=== PATIENT | female | born 1955 | race Caucasian/White ===

== ENCOUNTER 2023-04-25 19:14 | Inpatient (IN) | payer MEDICARE ==
[~2023-04-25] VITALS: Ht 172.7 cm; Wt 97.5 kg
--- NOTE | 2023-04-25 19:30 | NUR ---
Admission report received from AM nurse.
--- NOTE | 2023-04-25 19:55 | NUR ---
Patient awake, alert 2-3, able to make needs known. Sister at bedside. Left sided weakness noted. AUDI midline intact and patent. Supra pubic cath intact and patent draining clear yellow urine output. Routine admission care done. Plan of care initiated. VS taken and recorded.
[2023-04-25] MEDS ORDERED: ACET-3117 PO (20:08)
[2023-04-25] MEDS ORDERED: BACL10TA PO (20:08)
[2023-04-25] MEDS ORDERED: MELO-105 PO (20:08)
[2023-04-25] MEDS ORDERED: PREG50CA PO (20:08)
[2023-04-25] MEDS ORDERED: ATOR40TA PO (20:08)
[2023-04-25] MEDS ORDERED: MERO500P IV (20:08)
[2023-04-25] MEDS ORDERED: LITH300T3 PO (20:08)
[2023-04-25] MEDS ORDERED: TRAZ150T75 PO (20:08)
[2023-04-25] MEDS ORDERED: LIDO30AD10 TD (20:08)
[2023-04-25] MEDS ORDERED: BUSP30TA2 PO (20:08)
[2023-04-25] MEDS ORDERED: LAMO200T10 PO (20:08)
[2023-04-25] MEDS ORDERED: OXYC-128 PO (20:08)
[2023-04-25] MEDS ORDERED: PANT40TA49 PO (20:08)
[2023-04-25] MEDS ORDERED: AZIT250T13 PO (20:08)
[2023-04-25] MEDS ORDERED: ENOX40DI SQ (20:08)
[2023-04-25] MEDS ORDERED: BUPR450T3 PO (20:08)
[2023-04-25] MEDS ORDERED: ONDA-104 IVP (20:08)
[2023-04-25] MEDS ORDERED: ASPI-495 PO (20:08)
[2023-04-25] MEDS ORDERED: LORA0.5T48 GT (20:08)
[2023-04-25 20:38] VITALS: BP 150/55
[2023-04-25] MEDS: REMEDY ESSENTIAL ZINC PASTE 113 GM TOP SCH (21:05)
[2023-04-25] MEDS: IV NS 1000 ML 1,000 ML IV PRN (21:05)
[2023-04-25] MEDS ORDERED: LIDOCAINE 5% PATCH TD PRN (21:15)
[2023-04-25] MEDS ORDERED: BACLOFEN 10 MG TABLET PO SCH (21:15)
[2023-04-25] MEDS ORDERED: ACETAMINOPHEN 325 MG TABLET PO PRN (21:45)
[2023-04-25] MEDS: LORAZEPAM 0.5 MG TABLET GT SCH (21:53)
[2023-04-25] MEDS: LITHIUM CARBONATE 300 MG CAPSULE PO SCH (21:53)
[2023-04-26 04:05] VITALS: BP 157/60
[2023-04-26] MEDS: OXYCODONE/APAP 5-325 MG TABLET PO PRN ×3 (04:35→15:49)
--- NOTE | 2023-04-26 04:38 | NUR ---
Awakened, suddenly starts screaming, when asked what's going on, stated "where's my "?. Confused, disoriented, agitated, starts hitting staffs when approached, saying "you're hurting me". Patient has supra pubic catheter but still incontinent of urine. Diaper soak and wet with urine. Good skin/saul care rendered. Combative/resistive during the care. she kicked/punched with her right hand.
[2023-04-26 06:36] LABS: HEMATOCRIT 38.7 % (31.2-41.9); MEAN CORPUSCULAR VOLUME 92.6 fL (75.5-95.3); PLATELET COUNT (AUTO) 209 K/uL (179-408)
[2023-04-26 07:07] LABS: BILIRUBIN,TOTAL 0.3 mg/dL (0.2-1.0); MAGNESIUM 1.7 mg/dL (1.8-2.4); PHOSPHOROUS 3.7 mg/dL (2.5-4.9); POTASSIUM 3.4 mmol/L (3.5-5.1); TOTAL PROTEIN, SERUM 6.2 g/dL (6.4-8.2)
[2023-04-26 07:47] VITALS: BP 153/62
[2023-04-26 07:55] LABS: THYROID STIMULATING HORMONE 1.643 mIU/mL (0.358-3.740)
--- NOTE | 2023-04-26 08:10 | NUR ---
Awake intermittently,restless, oriented to name. O2 at 2L/NC. IVF infusing. Bed alarm on
[2023-04-26] MEDS ORDERED: AZITHROMYCIN 250 MG TABLET PO SCH ×2 (09:00)
--- NOTE | 2023-04-26 09:30 | NUR ---
Fully awake, alert, oriented x 4, able to verbalized needs appropriately, calm and compliant with care
[2023-04-26] MEDS: PREGABALIN 25 MG CAPSULE PO SCH ×2 (09:41→17:23)
[2023-04-26] MEDS: LAMOTRIGINE 100 MG TABLET PO SCH ×2 (09:41→20:25)
[2023-04-26] MEDS: MELOXICAM 7.5 MG TABLET PO SCH (09:42)
[2023-04-26] MEDS: buPROPion XL 150 MG TAB.SR.24H PO SCH (09:42)
[2023-04-26] MEDS: PANTOPRAZOLE SODIUM 40 MG TABLET.DR PO SCH (09:42)
[2023-04-26] MEDS: ASPIRIN EC 81 MG TABLET.DR PO SCH (09:42)
[2023-04-26] MEDS: LORAZEPAM 0.5 MG TABLET GT SCH ×4 (09:43→20:24)
[2023-04-26] MEDS: busPIRone 10 MG TABLET PO SCH ×2 (09:43→17:23)
[2023-04-26] MEDS: ENOXAPARIN SODIUM 40 MG/0.4 ML DISP.SYRIN SQ SCH (09:44)
[2023-04-26] MEDS: REMEDY ESSENTIAL ZINC PASTE 113 GM TOP SCH ×2 (09:47→20:25)
[2023-04-26] MEDS: BACLOFEN 10 MG TABLET PO SCH ×3 (09:48→17:23)
[2023-04-26] MEDS ORDERED: MEROPENEM 0.5 G in IV NORMAL SALINE 50 ML IV SCH (10:00)
[2023-04-26] MEDS: MEROPENEM 0.5 G in IV NORMAL SALINE 50 ML IV SCH ×2 (10:19→17:26)
[2023-04-26] MEDS: IV NS 1000 ML 1,000 ML IV PRN (10:19)
[2023-04-26] MEDS ORDERED: MAGNESIUM OXIDE 400 MG TABLET PO ONE (11:00)
[2023-04-26] MEDS ORDERED: POTASSIUM CHLORIDE 10 MEQ TAB.PRT.SR PO ONE (12:00)
--- NOTE | 2023-04-26 12:00 | NUR ---
Assisted out of bed with PT with FWW ambulating outside of the room
[2023-04-26 15:33] VITALS: BP 149/59
[2023-04-26] MEDS: ENSURE ENLIVE (VAN) 240 ML LIQUID PO SCH (17:24)
--- NOTE | 2023-04-26 17:34 | NUR ---
Awake, alert, oriented to name and time, able to verbalized needs appropriately. Assisted with meal.
[2023-04-26] MEDS: ATORVASTATIN 40 MG TABLET PO SCH (20:24)
[2023-04-26] MEDS: LITHIUM CARBONATE 300 MG CAPSULE PO SCH (20:24)
[2023-04-26] MEDS: TRAZODONE 100 MG TABLET PO SCH (20:25)
[2023-04-26 20:46] VITALS: BP 154/59
[2023-04-27] MEDS: IV NS 1000 ML 1,000 ML IV PRN (00:03)
[2023-04-27] MEDS: OXYCODONE/APAP 5-325 MG TABLET PO PRN ×3 (00:10→18:02)
[2023-04-27] MEDS: MEROPENEM 0.5 G in IV NORMAL SALINE 50 ML IV SCH ×2 (02:00→17:52)
[2023-04-27 04:00] VITALS: BP 144/83
[2023-04-27] MEDS: PANTOPRAZOLE SODIUM 40 MG TABLET.DR PO SCH (06:57)
[2023-04-27 08:00] VITALS: BP 148/58
[2023-04-27] MEDS: ASPIRIN EC 81 MG TABLET.DR PO SCH (09:51)
[2023-04-27] MEDS: LORAZEPAM 0.5 MG TABLET GT SCH ×4 (09:51→21:51)
[2023-04-27] MEDS: buPROPion XL 150 MG TAB.SR.24H PO SCH (09:51)
[2023-04-27] MEDS: BACLOFEN 10 MG TABLET PO SCH ×2 (09:52→12:18)
[2023-04-27] MEDS: PREGABALIN 25 MG CAPSULE PO SCH ×2 (09:52→17:04)
[2023-04-27] MEDS: LAMOTRIGINE 100 MG TABLET PO SCH ×3 (09:52→21:51)
[2023-04-27] MEDS: busPIRone 10 MG TABLET PO SCH ×2 (09:52→17:03)
[2023-04-27] MEDS: MELOXICAM 7.5 MG TABLET PO SCH (09:52)
[2023-04-27] MEDS: ENSURE ENLIVE (VAN) 240 ML LIQUID PO SCH ×2 (09:54→17:09)
[2023-04-27] MEDS: ENOXAPARIN SODIUM 40 MG/0.4 ML DISP.SYRIN SQ SCH (09:54)
[2023-04-27] MEDS ORDERED: METH20TA PO (11:07)
[2023-04-27] MEDS: REMEDY ESSENTIAL ZINC PASTE 113 GM TOP SCH ×2 (11:13→21:52)
--- NOTE | 2023-04-27 11:14 | NUR ---
INTERDISCIPLINARY TEAM CONFERENCE
[2023-04-27] MEDS ORDERED: DEXT1CAP3 PO (13:26)
--- NOTE | 2023-04-27 13:59 | NUR ---
PATIENT HAD COMPLAINT OF PAIN. RN CHECKED EMAR AND RN NOTED PERCOCET MEDICATION WAS NOT SCANNED AT 1000AM. RN NOTIFIES PHARMACY REGARDING THE SITUATION. PER PHARMACY, RN TO DOCUMENT THE INCIDENT. RN GAVE PAIN MEDICATION PER REQUEST. NO SIGNS AND SYMPTOMS OF ACUTE DISTRESS.
[2023-04-27] MEDS: LIDOCAINE 5% PATCH TD PRN (14:05)
[2023-04-27 16:00] VITALS: BP 142/77
[2023-04-27] MEDS: BACLOFEN 20 MG TABLET PO SCH (17:04)
--- NOTE | 2023-04-27 19:57 | NUR ---
RECEIVED REPORT FROM [facility] SHIFT RN. PATIENT IS ALERT AND ORIENTED X2-3 AND SPEAKS [place]. VITAL SIGNS STABLE. PATIENT TOLERATES PO MEDICATIONS AND DIET WELL. PATIENT HAD COMPLAINT OF PAIN. RN GAVE MEDICATIONS ORDERED. PATIENT EXPRESSES RELIEF. PATIENT PARTICIPATES WITH PHYSICAL AND OCCUPATIONAL THERAPY SCHEDULED. PSYCH MD VISTED PATIENT. PSYCH EVALUATION COMPLETED. MEDICATIONS NOTED BY RN. PER PHARMACY, PATIENT'S NUEDEXTA WAS . RN NOTIFIES , DENNIS, REGARDING EXPIRATION. DENNIS STATES: "I WILL FOLLOW UP WITH THE DOCTOR." RN NOTED. RN NOTIFIES PATIENT'S SISTER REGARDING THE MEDICATION EXPIRATION TOO. PATIENT SISTER VERBALIZED UNDERSTANDING. PATIENT'S (R) UPPER MIDLINE BECAME BLOCKED. NEW MIDLINE ORDERED. RN NOTIFIES HOUSING ANIME ARTIST. PATIENT RECEIVED HER NEW MIDLINE, HOWEVER UNABLE TO GIVE 1000AM DOSE OF MEROPENEM. RN NOTIFIES PHARMACY. PHARMACY ABLE TO CHANGE TIMES INDICATED. PATIENT'S FAMILY VISITED. NO ACUTE DISTRESS NOTED. CALL LIGHT WITHIN REACH. FALL PRECAUTIONS OBSERVED. RN ENDORSED CARE TO [facility] SHIFT NURSE FOR CONTINUATION OF CARE.
[2023-04-27 20:00] VITALS: BP 143/59
[2023-04-27] MEDS: TRAZODONE 100 MG TABLET PO SCH ×2 (21:00→21:51)
[2023-04-27] MEDS: ATORVASTATIN 40 MG TABLET PO SCH ×2 (21:00→21:51)
--- NOTE | 2023-04-27 21:00 | NUR ---
PT IS VERY CONFUSED. REFUSED MEDICATIONS. PT SPITS OUT WHAT IS BEING GIVEN HER. CONTINUOUSLY SAYING SHE WANTS HER THERE. SHE ONLY TOOK ATIVAN AND ESKALITH. RN REORIENTED PT. NO ASPIRATION NOTED. SAFETY PRECAUTIONS MAINTAINED. WILL CONTINUE TO MONITOR.
[2023-04-27] MEDS: LITHIUM CARBONATE 300 MG CAPSULE PO SCH (21:51)
[2023-04-28] MEDS: MEROPENEM 0.5 G in IV NORMAL SALINE 50 ML IV SCH ×3 (01:04→17:24)
[2023-04-28 04:00] VITALS: BP 158/81
[2023-04-28] MEDS: PANTOPRAZOLE SODIUM 40 MG TABLET.DR PO SCH (06:18)
[2023-04-28 08:00] VITALS: BP 138/64
[2023-04-28] MEDS: ENSURE ENLIVE (VAN) 240 ML LIQUID PO SCH ×2 (08:04→17:24)
[2023-04-28] MEDS ORDERED: NUDEXTA PO SCH (09:00)
[2023-04-28] MEDS: LORAZEPAM 0.5 MG TABLET GT SCH ×4 (09:34→20:03)
[2023-04-28] MEDS: busPIRone 10 MG TABLET PO SCH ×2 (09:34→17:24)
[2023-04-28] MEDS: IV NS 1000 ML 1,000 ML IV PRN (09:34)
[2023-04-28] MEDS: LAMOTRIGINE 100 MG TABLET PO SCH ×2 (09:35→20:02)
[2023-04-28] MEDS: PREGABALIN 25 MG CAPSULE PO SCH ×2 (09:35→17:23)
[2023-04-28] MEDS: ASPIRIN EC 81 MG TABLET.DR PO SCH (09:35)
[2023-04-28] MEDS: MELOXICAM 7.5 MG TABLET PO SCH (09:35)
[2023-04-28] MEDS: buPROPion XL 150 MG TAB.SR.24H PO SCH (09:38)
[2023-04-28] MEDS: ENOXAPARIN SODIUM 40 MG/0.4 ML DISP.SYRIN SQ SCH (09:39)
[2023-04-28] MEDS: REMEDY ESSENTIAL ZINC PASTE 113 GM TOP SCH ×2 (09:46→20:32)
[2023-04-28] MEDS: BACLOFEN 20 MG TABLET PO SCH ×3 (09:56→17:23)
[2023-04-28] MEDS: OXYCODONE/APAP 5-325 MG TABLET PO PRN ×2 (09:58→14:27)
--- NOTE | 2023-04-28 11:34 | NUR ---
INDIVIDUALIZED PLAN OF CARE
[2023-04-28 16:00] VITALS: BP 119/73
--- NOTE | 2023-04-28 17:45 | NUR ---
MD CONSULTS: Notified Dr. Zamarripa and Dr. Ceballos that they had consults ordered for this pt and what the reasons are. Dr. Zamarripa saw pt today and will write notes soon. Dr. Ceballos will see pt tomorrow.
[2023-04-28 20:00] VITALS: BP 123/62
[2023-04-28] MEDS: LITHIUM CARBONATE 300 MG CAPSULE PO SCH (20:02)
[2023-04-28] MEDS: TRAZODONE 100 MG TABLET PO SCH (20:03)
[2023-04-28] MEDS: ATORVASTATIN 40 MG TABLET PO SCH (20:03)
--- NOTE | 2023-04-29 00:02 | NUR ---
Sleeping, appears comfortable
[2023-04-29] MEDS: IV NS 1000 ML 1,000 ML IV PRN ×2 (00:25→17:47)
[2023-04-29] MEDS: MEROPENEM 0.5 G in IV NORMAL SALINE 50 ML IV SCH ×3 (01:30→17:47)
[2023-04-29 04:00] VITALS: BP 169/75
[2023-04-29] MEDS: PANTOPRAZOLE SODIUM 40 MG TABLET.DR PO SCH (06:03)
[2023-04-29 07:48] VITALS: BP 146/60
[2023-04-29] MEDS: ENSURE ENLIVE (VAN) 240 ML LIQUID PO SCH ×2 (08:06→17:14)
[2023-04-29] MEDS: busPIRone 10 MG TABLET PO SCH ×2 (08:22→16:25)
[2023-04-29] MEDS: OXYCODONE/APAP 5-325 MG TABLET PO PRN ×3 (08:23→17:35)
[2023-04-29] MEDS: LORAZEPAM 0.5 MG TABLET GT SCH ×4 (08:31→20:58)
[2023-04-29] MEDS: PREGABALIN 25 MG CAPSULE PO SCH ×2 (08:31→16:24)
[2023-04-29] MEDS: MELOXICAM 7.5 MG TABLET PO SCH (08:59)
[2023-04-29] MEDS: LAMOTRIGINE 100 MG TABLET PO SCH ×2 (08:59→20:58)
[2023-04-29] MEDS: BACLOFEN 20 MG TABLET PO SCH ×3 (08:59→16:25)
[2023-04-29] MEDS: buPROPion XL 150 MG TAB.SR.24H PO SCH (08:59)
[2023-04-29] MEDS: ASPIRIN EC 81 MG TABLET.DR PO SCH (08:59)
[2023-04-29] MEDS: REMEDY ESSENTIAL ZINC PASTE 113 GM TOP SCH ×2 (09:00→20:58)
[2023-04-29] MEDS: ENOXAPARIN SODIUM 40 MG/0.4 ML DISP.SYRIN SQ SCH (09:01)
--- NOTE | 2023-04-29 10:47 | NUR ---
WOUND CARE CONSULT: LIMITED ASSESSMENT DUE TO PT REFUSAL. PT NOTED TO HAVE RT BUTTOCK SURGICAL SCAR AND REDNESS/RASH TO INNER BUTTOCKS, GROIN FOLDS AND PERINEUM, PRESENT ON ADMISSION. RECOMMENDATIONS MADE FOR SKIN PROTECTION. DISCUSSED WITH NURSING STAFF. MD IN AGREEMENT WITH PLAN OF CARE.
--- NOTE | 2023-04-29 12:26 | NUR ---
Returned Nudextra from Pharmacy to pt's sister, Kely, to take home.
[2023-04-29 15:50] VITALS: BP 157/72
[2023-04-29] MEDS: CLOTRIMAZOLE 1% CREAM 30 GM TUBE TOP SCH (16:25)
--- NOTE | 2023-04-29 18:30 | NUR ---
Pt alternating between crying out in pain saying "It hurts!" and grabbing at her volva to scratch it AND falling asleep. Pt cleaned, Lotrimin and Z-guard applied per discussion with Wound Care Nurse. The behavior continued. Notified Dr. Kaur at 1748 who ordered an ice pack, which was placed on her volva for 20 minutes, and 1% Hydrocortisone cream which will be applied as soon as it's available. Pt appears to be comfortable now. Will continue to monitor and endorse to weight shifter.
[2023-04-29] MEDS: HYDROCORTISONE 1% OINT 28.35 GM TUBE TOP SCH (18:43)
[2023-04-29 20:36] VITALS: BP 143/67
[2023-04-29] MEDS: LITHIUM CARBONATE 300 MG CAPSULE PO SCH (20:57)
[2023-04-29] MEDS: TRAZODONE 100 MG TABLET PO SCH (20:58)
[2023-04-29] MEDS: ATORVASTATIN 40 MG TABLET PO SCH (20:58)
[2023-04-30] MEDS: MEROPENEM 0.5 G in IV NORMAL SALINE 50 ML IV SCH ×3 (02:02→17:41)
--- NOTE | 2023-04-30 03:12 | NUR ---
AAOx1-2 Confused and disoriented. Patient asleep on and off at short intervals. Needs attended. Tolerated po meds without difficulty. Took meds with applesauce. Repositioned for comfort. Incontinent of BM x1 Kept clean and dry Patient also has a suprapubic catheter to gravity drainage. Urine yellow with no sediments. RUE midline flushed and patent, on IVF's of NSS @ 75cc/hr Patient also on ABT Merrem, given as scheduled. No side effects noted. Lotrimin applied to fungal rash. Will monitor patient. Fall prfecautions maintained. Siderails up for safety.
[2023-04-30 04:15] VITALS: BP 137/87
[2023-04-30] MEDS: OXYCODONE/APAP 5-325 MG TABLET PO PRN ×4 (04:21→17:46)
[2023-04-30] MEDS: PANTOPRAZOLE SODIUM 40 MG TABLET.DR PO SCH (06:12)
[2023-04-30] MEDS: LIDOCAINE 5% PATCH TD PRN (08:07)
[2023-04-30] MEDS: LORAZEPAM 0.5 MG TABLET GT SCH ×4 (08:50→20:56)
[2023-04-30] MEDS: buPROPion XL 150 MG TAB.SR.24H PO SCH (08:50)
[2023-04-30] MEDS: LAMOTRIGINE 100 MG TABLET PO SCH ×2 (08:50→20:54)
[2023-04-30] MEDS: ASPIRIN EC 81 MG TABLET.DR PO SCH (08:50)
[2023-04-30] MEDS: MELOXICAM 7.5 MG TABLET PO SCH (08:50)
[2023-04-30] MEDS: PREGABALIN 25 MG CAPSULE PO SCH ×2 (08:50→16:53)
[2023-04-30] MEDS: busPIRone 10 MG TABLET PO SCH ×2 (08:50→16:53)
[2023-04-30] MEDS: BACLOFEN 10 MG TABLET PO SCH ×3 (08:50→16:53)
[2023-04-30] MEDS: CLOTRIMAZOLE 1% CREAM 30 GM TUBE TOP SCH ×2 (09:09→17:02)
[2023-04-30] MEDS: REMEDY ESSENTIAL ZINC PASTE 113 GM TOP SCH ×2 (09:10→21:52)
[2023-04-30] MEDS: HYDROCORTISONE 1% OINT 28.35 GM TUBE TOP SCH ×3 (09:10→17:02)
[2023-04-30] MEDS: ENSURE ENLIVE (VAN) 240 ML LIQUID PO SCH ×2 (09:11→16:53)
[2023-04-30] MEDS: ENOXAPARIN SODIUM 40 MG/0.4 ML DISP.SYRIN SQ SCH (09:12)
[2023-04-30 10:34] LABS: HEMATOCRIT 38.5 % (31.2-41.9); MEAN CORPUSCULAR HEMOGLOBIN 30.1 uug (24.7-32.8); PLATELET COUNT (AUTO) 213 K/uL (179-408)
[2023-04-30 10:53] LABS: BILIRUBIN,TOTAL 0.4 mg/dL (0.2-1.0); CREATININE 0.9 mg/dL (0.6-1.3); POTASSIUM 3.3 mmol/L (3.5-5.1); TOTAL PROTEIN, SERUM 6.4 g/dL (6.4-8.2)
[2023-04-30 11:16] LABS: *BILIRUBIN,URIN NEGATIVE (NEGATIVE); *BLOOD, URINE NEGATIVE (NEGATIVE); *CLARITY,URINE CLEAR (CLEAR); *COLOR,URINE YELLOW (YELLOW); *KETONES,URINE NEGATIVE (NEGATIVE); *UROBILINOGEN,URINE 0.2 E.U./dl (NORMAL); LEUKOCYTE ESTERASE ,URINE 1+ (NEGATIVE); NITRITE, URINE NEGATIVE (NEGATIVE); UGLUCOSE NEGATIVE (NEGATIVE)
[2023-04-30 11:41] LABS: RBC,URINE 0-3 /HPF (0-3); WBC,URINE 20-50 /HPF (0-3)
[2023-04-30 11:42] LABS: BACTERIA,URINE FEW /HPF (NONE SEEN); CALCIUM OXALATE CRYSTALS,UR FEW /HPF (NONE SEEN); SQUAMOUS EPITHELIAL CELL,UR FEW /HPF (NONE SEEN); YEAST,URINE BUDDING YEAST /HPF (NONE SEEN)
[2023-04-30 12:21] VITALS: BP 131/77
[2023-04-30] MEDS ORDERED: FLUCONAZOLE 200 MG/NS 100ML IV 200 MG in PREMIXED 1 EACH IV ONE (12:45)
[2023-04-30] MEDS: IV NS 1000 ML 1,000 ML IV PRN (13:22)
--- NOTE | 2023-04-30 14:00 | NUR ---
PATIENT'S SISTER NOTED A CHANGE IN PATIENT'S COHERENCE. VITAL SIGNS STABLE. PATIENT HAS PAIN. RN GAVE PAIN MEDICATIONS INDICATED. RN NOTIFIES MD REGARDING THE INCOHERENCE. MD ORDERS CARRIED OUT INDICATED. UA COLLECTED & URINE COLLECTION BAG CHANGED. PATIENT'S SISTER MENTIONS PATIENT ALLERGIES. RN UPDATES MEDICAL CHARTS AND NOTIFIES PHARMACY. PER PHARMACY, NO CURRENT MEDICATIONS INTERACT WITH ALLERGIES. PATIENT CONTINUES TO HAVE CYCLES OF WAKING UP IN PAIN AND THEN KNOCKING BACK TO SLEEP. RN NOTED. RN TRIED TO KEEP PATIENT COMFORTABLE. NO ACUTE DISTRESS NOTED. PLAN OF CARE CONTINUES.
--- NOTE | 2023-04-30 19:32 | NUR ---
RECEIVED REPORT FROM [facility] SHIFT RN. PATIENT IS ALERT AND ORIENTED X2-3 AND SPEAKS JAPANESE. VITAL SIGNS STABLE. PATIENT TOLERATES PO MEDICATIONS AND DIET WELL. PATIENT HAD COMPLAINT OF PAIN. RN GAVE MEDICATIONS ORDERED. PATIENT EXPRESSES RELIEF. PATIENT UNABLE TO PARTICIPATE WITH PHYSICAL AND OCCUPATIONAL THERAPY SCHEDULED DUE TO INCOHERENCE. RN ALREADY INFORMED MD REGARDING INCREASED INCOHERENCE. ORDERS CARRIED OUT INDICATED. ANTIFUNGAL IV MEDICATION GIVEN. PATIENT'S CONDITION SEEMED TO IMPROVE. PATIENT ABLE TO COMMUNICATE A BIT BETTER. PATIENT'S FAMILY VISITED. NO ACUTE DISTRESS NOTED. CALL LIGHT WITHIN REACH. FALL PRECAUTIONS OBSERVED. RN ENDORSED CARE TO [facility] SHIFT NURSE FOR CONTINUATION OF CARE.
[2023-04-30 20:51] VITALS: BP 109/64
[2023-04-30] MEDS: LITHIUM CARBONATE 300 MG CAPSULE PO SCH (20:55)
[2023-04-30] MEDS: TRAZODONE 100 MG TABLET PO SCH (20:55)
[2023-04-30] MEDS: ATORVASTATIN 40 MG TABLET PO SCH (20:56)
[2023-05-01] MEDS: MEROPENEM 0.5 G in IV NORMAL SALINE 50 ML IV SCH (01:51)
[2023-05-01 04:41] VITALS: BP 114/75
[2023-05-01] MEDS: PANTOPRAZOLE SODIUM 40 MG TABLET.DR PO SCH (06:22)
--- NOTE | 2023-05-01 06:48 | NUR ---
Slept intermittently, no complain of pain, no noted respiratory distress. Suprapubic cath intact and draining to yellow color urine output. No adverse reaction from IV antibiotic. Needs assessed and attended to.
[2023-05-01 07:36] VITALS: BP 173/74
[2023-05-01] MEDS: ENSURE ENLIVE (VAN) 240 ML LIQUID PO SCH ×3 (08:36→17:14)
[2023-05-01] MEDS: ENOXAPARIN SODIUM 40 MG/0.4 ML DISP.SYRIN SQ SCH (08:56)
[2023-05-01] MEDS: CLOTRIMAZOLE 1% CREAM 30 GM TUBE TOP SCH ×2 (08:57→17:14)
[2023-05-01] MEDS: HYDROCORTISONE 1% OINT 28.35 GM TUBE TOP SCH ×3 (08:58→17:13)
[2023-05-01] MEDS: LORAZEPAM 0.5 MG TABLET PO SCH ×2 (09:00→13:00)
[2023-05-01] MEDS: LAMOTRIGINE 100 MG TABLET PO SCH ×2 (09:00→20:43)
[2023-05-01] MEDS: PREGABALIN 25 MG CAPSULE PO SCH ×2 (09:00→16:42)
[2023-05-01] MEDS: ASPIRIN EC 81 MG TABLET.DR PO SCH (09:00)
[2023-05-01] MEDS: BACLOFEN 10 MG TABLET PO SCH ×3 (09:00→16:42)
[2023-05-01] MEDS: MELOXICAM 7.5 MG TABLET PO SCH (09:00)
[2023-05-01] MEDS: busPIRone 10 MG TABLET PO SCH ×2 (09:00→16:42)
[2023-05-01] MEDS: buPROPion XL 150 MG TAB.SR.24H PO SCH (09:00)
[2023-05-01] MEDS: REMEDY ESSENTIAL ZINC PASTE 113 GM TOP SCH ×2 (09:03→20:45)
--- NOTE | 2023-05-01 09:10 | NUR ---
Aden Gómez, TAKER AWAY at pt's bedside with RNs. Pt difficult to arouse, AMS. Notified TAKER AWAY of High BP. TAKER AWAY ordered STAT ABG and Chest Xray. TAKER AWAY will look at BP.
[2023-05-01 09:33] LABS: ABG BASE EXCESS 2.9 mmol/L; ABG PCO2 39.4 mmHg (35.0-45.0); ABG PH 7.453 (7.350-7.450); ABG PO2 85.2 mmHg (75.0-100.0); ABG SITE LEFT RADIAL; ABG TOTAL HEMOGLOBIN 13.5 G/dL (12.0-16.0); COHb 1.2 % (0.5-1.5); O2Hb 95.5 % (94.0-97.0); VENT MODE Room Air
[2023-05-01 09:37] LABS: HEMATOCRIT 39.9 % (31.2-41.9); MEAN CORPUSCULAR HEMOGLOBIN 30.2 uug (24.7-32.8); MEAN CORPUSCULAR VOLUME 91.6 fL (75.5-95.3); PLATELET COUNT (AUTO) 213 K/uL (179-408)
[2023-05-01 09:41] LABS: CREATININE 0.8 mg/dL (0.6-1.3)
[2023-05-01 09:42] LABS: POTASSIUM 2.8 mmol/L (3.5-5.1)
--- NOTE | 2023-05-01 09:46 | NUR ---
Spoke with Aden Gómez NP, holding all PO medications at this time. ABG results discussed and STAT chest Xray done. FELTER TENNIS BALLS ordered STAT CT of the head which is pending. Pt is currently more alert, slightly slurred speech, stating "You're hurting me". When asked where her pain is or what level she is unable to respond, continues to repeat "You're hurting me." No SOB at this time. FELTER TENNIS BALLS allowing high BP until CT of head results are in.
[2023-05-01] MEDS: FLUCONAZOLE 200 MG TABLET PO SCH (12:14)
[2023-05-01] MEDS: OXYCODONE/APAP 5-325 MG TABLET PO PRN ×3 (12:48→16:42)
[2023-05-01 13:39] LABS: BILIRUBIN,DIRECT 0.1 mg/dL (0.0-0.2); BILIRUBIN,TOTAL 0.3 mg/dL (0.2-1.0); TOTAL PROTEIN, SERUM 6.8 g/dL (6.4-8.2)
[2023-05-01] MEDS: POTASSIUM CHLORIDE 50 ML IV SCH ×4 (13:49→17:59)
[2023-05-01] MEDS: IV NS 1000 ML 1,000 ML IV PRN (15:16)
[2023-05-01 15:34] VITALS: BP 173/95
[2023-05-01 17:30] VITALS: BP 124/85
--- NOTE | 2023-05-01 17:44 | NUR ---
17:00, Pt is awake, mildly restless, states to have pain 10/10 on Lt side. Contacted Aden Gómez FOUR CORNER STAYER MACHINE OPERATOR, to clarify which meds should be taken. Per FOUR CORNER STAYER MACHINE OPERATOR, all meds can be resumed but to hold the Ativan. Pt was given her 17:00 meds and 1 tab of Percocet for pain. Will re assess.
[2023-05-01 20:34] VITALS: BP 122/77
[2023-05-01] MEDS: ATORVASTATIN 40 MG TABLET PO SCH (20:43)
[2023-05-01] MEDS: TRAZODONE 100 MG TABLET PO SCH (20:44)
[2023-05-01] MEDS: LITHIUM CARBONATE 300 MG CAPSULE PO SCH (20:44)
[2023-05-02 04:18] VITALS: BP 130/62
[2023-05-02] MEDS: IV NS 1000 ML 1,000 ML IV PRN (04:55)
--- NOTE | 2023-05-02 06:16 | NUR ---
Patient slept well throughout the night, alert and oriented x1, arousable to name and touch. Able to communicate needs. Suprapubic catheter intact and draining well. Needs attended.
[2023-05-02] MEDS: PANTOPRAZOLE SODIUM 40 MG TABLET.DR PO SCH (06:31)
[2023-05-02 07:01] LABS: HEMATOCRIT 36.7 % (31.2-41.9); MEAN CORPUSCULAR HEMOGLOBIN 30.4 uug (24.7-32.8); MEAN CORPUSCULAR VOLUME 92.4 fL (75.5-95.3); PLATELET COUNT (AUTO) 201 K/uL (179-408)
[2023-05-02 07:02] LABS: CREATININE 0.9 mg/dL (0.6-1.3); POTASSIUM 3.4 mmol/L (3.5-5.1)
[2023-05-02] MEDS: OXYCODONE/APAP 5-325 MG TABLET PO PRN ×3 (07:06→20:40)
[2023-05-02 07:36] VITALS: BP 157/82
[2023-05-02] MEDS: ENSURE ENLIVE (VAN) 240 ML LIQUID PO SCH ×2 (08:04→17:08)
[2023-05-02] MEDS: MELOXICAM 7.5 MG TABLET PO SCH (08:17)
[2023-05-02] MEDS: BACLOFEN 10 MG TABLET PO SCH ×3 (08:17→17:01)
[2023-05-02] MEDS: busPIRone 10 MG TABLET PO SCH ×2 (08:17→17:01)
[2023-05-02] MEDS: LAMOTRIGINE 100 MG TABLET PO SCH ×2 (08:17→20:41)
[2023-05-02] MEDS: ASPIRIN EC 81 MG TABLET.DR PO SCH (08:17)
[2023-05-02] MEDS: LORAZEPAM 0.5 MG TABLET PO SCH ×2 (08:18→16:58)
[2023-05-02] MEDS: PREGABALIN 25 MG CAPSULE PO SCH ×2 (08:18→17:01)
[2023-05-02] MEDS: buPROPion XL 150 MG TAB.SR.24H PO SCH (08:18)
[2023-05-02] MEDS: FLUCONAZOLE 200 MG TABLET PO SCH (08:20)
[2023-05-02] MEDS: ENOXAPARIN SODIUM 40 MG/0.4 ML DISP.SYRIN SQ SCH (08:21)
[2023-05-02] MEDS: HYDROCORTISONE 1% OINT 28.35 GM TUBE TOP SCH ×3 (08:28→17:07)
[2023-05-02] MEDS: REMEDY ESSENTIAL ZINC PASTE 113 GM TOP SCH ×2 (08:28→20:06)
[2023-05-02] MEDS: CLOTRIMAZOLE 1% CREAM 30 GM TUBE TOP SCH ×2 (08:28→17:07)
[2023-05-02] MEDS ORDERED: POTASSIUM CHLORIDE 20 MEQ TAB.PRT.SR PO ONE (09:15)
--- NOTE | 2023-05-02 10:17 | NUR ---
0730-Rec'd patient in bed, asleep, wide awake, no respiratory distress noted. Patient watching TV, denies pain, S/P draining to gravity/yellow urine output, patient denies bladder discomfort. Patient nicely snuggled with blankets and states she is "comfortable" 0900-Scheduled medication administered with no ASE noted, oral fluids taken well. Observed a large skin discoloration on her LT AC area extending to outer/lateral AC area. No active bleeding noted; patient denies pain. Safety precautions observed. 1000-Patient OOB ambulating with PT and doing fairly., Notified MD regarding above LT AC aea skin discoloration, MD acknowledged with no orders given at this time.
--- NOTE | 2023-05-02 15:27 | NUR ---
MD gave orders for duplex to left AC hematoma, order noted and carried out. Results rec'd and (-) for occlusion/clot.
--- NOTE | 2023-05-02 19:58 | NUR ---
Patient in stable baseline conditions. Medications administered through out the shift as scheduled. Oral fluids offered as claudine. VSS during shift. Care provided at routine intervals and as needed. Repositioned q2hrs to promote comfort and facilitate pressure relief. All needs attended well and met.
[2023-05-02 20:00] VITALS: BP 165/66
[2023-05-02] MEDS: LITHIUM CARBONATE 300 MG CAPSULE PO SCH (20:40)
[2023-05-02] MEDS: ATORVASTATIN 40 MG TABLET PO SCH (20:41)
[2023-05-02] MEDS: TRAZODONE 100 MG TABLET PO SCH (20:41)
[2023-05-03 04:00] VITALS: BP 125/61
--- NOTE | 2023-05-03 05:46 | NUR ---
RN NOTE: Patient asleep in bed at start of shift. Pt did not c/o pain or discomfort. Pt needs, including perinea care and repositioning provided and attended to as needed. Pt took her PM/Bedtime medication as ordered, with applesauce. Repositioned for comfort. RUE midline flushed. Fall precautions maintained and side-rails up for safety at this time.
[2023-05-03] MEDS: PANTOPRAZOLE SODIUM 40 MG TABLET.DR PO SCH (06:27)
[2023-05-03] MEDS: IV NS 1000 ML 1,000 ML IV PRN ×2 (07:21→07:39)
[2023-05-03 07:36] VITALS: BP 164/72
[2023-05-03] MEDS: ENSURE ENLIVE (VAN) 240 ML LIQUID PO SCH ×2 (08:08→17:57)
[2023-05-03] MEDS: PREGABALIN 25 MG CAPSULE PO SCH ×2 (08:51→17:56)
[2023-05-03] MEDS: ASPIRIN EC 81 MG TABLET.DR PO SCH (08:51)
[2023-05-03] MEDS: LAMOTRIGINE 100 MG TABLET PO SCH ×2 (08:52→20:38)
[2023-05-03] MEDS: buPROPion XL 150 MG TAB.SR.24H PO SCH (08:52)
[2023-05-03] MEDS: MELOXICAM 7.5 MG TABLET PO SCH (08:52)
[2023-05-03] MEDS: BACLOFEN 10 MG TABLET PO SCH ×3 (08:53→17:59)
[2023-05-03] MEDS: busPIRone 10 MG TABLET PO SCH ×2 (08:53→17:56)
[2023-05-03] MEDS: ENOXAPARIN SODIUM 40 MG/0.4 ML DISP.SYRIN SQ SCH (08:54)
[2023-05-03] MEDS: FLUCONAZOLE 200 MG TABLET PO SCH (08:55)
[2023-05-03] MEDS: LORAZEPAM 0.5 MG TABLET PO SCH ×2 (09:00→17:56)
[2023-05-03] MEDS: HYDROCORTISONE 1% OINT 28.35 GM TUBE TOP SCH ×3 (09:11→17:58)
[2023-05-03] MEDS: CLOTRIMAZOLE 1% CREAM 30 GM TUBE TOP SCH ×2 (09:12→17:58)
[2023-05-03] MEDS: REMEDY ESSENTIAL ZINC PASTE 113 GM TOP SCH ×2 (09:13→20:38)
[2023-05-03] MEDS: OXYCODONE/APAP 5-325 MG TABLET PO PRN ×2 (09:16→17:56)
--- NOTE | 2023-05-03 09:35 | NUR ---
RICHY HELD: Per night nurse pt was difficult to arouse this AM. Ativan held to reduce AMS. Pt alert now and speaking without slurring her speech. Will continue to monitor.
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
[2023-05-03 15:16] VITALS: BP 159/80
[2023-05-03 20:24] VITALS: BP 152/78
[2023-05-03] MEDS: ATORVASTATIN 10 MG TABLET PO SCH (20:38)
[2023-05-03] MEDS: TRAZODONE 100 MG TABLET PO SCH (20:38)
[2023-05-03] MEDS: LITHIUM CARBONATE 300 MG CAPSULE PO SCH (20:38)
--- NOTE | 2023-05-04 03:53 | NUR ---
Awake alert and oriented x3-4 with some periods of forgetfulness and confusion. Admitted for sepsis and UTI. On po diflucan given as scheduled. Tolerated po meds well with apple sauce. Fall precautions maintained. No acute distress noted. Suprapubic catheter intact draining yellow urine. Repositioned for comfort. Turned to sides. Will monitor patient. VSS.Kept comfortable. All needs attended. Denies any pain nor any discomfort.
[2023-05-04 04:40] VITALS: BP 156/89
[2023-05-04] MEDS: IV NS 1000 ML 1,000 ML IV PRN ×2 (05:39→21:09)
[2023-05-04] MEDS: PANTOPRAZOLE SODIUM 40 MG TABLET.DR PO SCH (06:14)
[2023-05-04] MEDS: FLUCONAZOLE 200 MG TABLET PO SCH (08:18)
[2023-05-04] MEDS: buPROPion XL 150 MG TAB.SR.24H PO SCH (08:18)
[2023-05-04] MEDS: LORAZEPAM 0.5 MG TABLET PO SCH ×2 (08:19→16:43)
[2023-05-04] MEDS: busPIRone 10 MG TABLET PO SCH ×2 (08:19→16:42)
[2023-05-04] MEDS: PREGABALIN 25 MG CAPSULE PO SCH ×2 (08:19→16:42)
[2023-05-04] MEDS: MELOXICAM 7.5 MG TABLET PO SCH (08:19)
[2023-05-04] MEDS: ASPIRIN EC 81 MG TABLET.DR PO SCH (08:19)
[2023-05-04] MEDS: BACLOFEN 10 MG TABLET PO SCH ×3 (08:19→16:42)
[2023-05-04] MEDS: LAMOTRIGINE 100 MG TABLET PO SCH ×2 (08:19→20:15)
[2023-05-04] MEDS: ENOXAPARIN SODIUM 40 MG/0.4 ML DISP.SYRIN SQ SCH (08:20)
[2023-05-04] MEDS: REMEDY ESSENTIAL ZINC PASTE 113 GM TOP SCH ×2 (08:22→20:19)
[2023-05-04] MEDS: HYDROCORTISONE 1% OINT 28.35 GM TUBE TOP SCH ×3 (08:22→16:46)
[2023-05-04] MEDS: CLOTRIMAZOLE 1% CREAM 30 GM TUBE TOP SCH ×2 (08:22→16:46)
[2023-05-04] MEDS: ENSURE ENLIVE (VAN) 240 ML LIQUID PO SCH ×2 (08:23→16:43)
[2023-05-04 08:24] VITALS: BP 168/73
--- NOTE | 2023-05-04 09:08 | NUR ---
INTERDISCIPLINARY TEAM CONFERENCE
[2023-05-04] MEDS: hydrALAZINE HCL 25 MG TABLET PO PRN ×2 (09:16→21:29)
[2023-05-04 14:58] VITALS: BP 112/75
--- NOTE | 2023-05-04 18:55 | NUR ---
Patient is AAO/1-2. No heart murmur, clear breath sounds, on R/A and claudine. well bowel sounds active in all quadrants. Patient shows signs of confusion on and off, redirect as needed. Medications administered as ordered/scheduled and tolerated with no ASE noted.Patient had her PT/OT as scheduled today and tolerated fairly. Patient has been sleepy on and off during shift with VSS. Extensive assist provided with ADLs, S/P patent and draining to gravity.
[2023-05-04] MEDS: TRAZODONE 100 MG TABLET PO SCH (20:16)
[2023-05-04] MEDS: LITHIUM CARBONATE 300 MG CAPSULE PO SCH (20:16)
[2023-05-04] MEDS: OXYCODONE/APAP 5-325 MG TABLET PO PRN (20:16)
[2023-05-04] MEDS: ATORVASTATIN 10 MG TABLET PO SCH (20:16)
[2023-05-04 20:50] VITALS: BP 182/89
--- NOTE | 2023-05-05 04:13 | NUR ---
Condition unchanged. AAOx3-4 Admitted for sepsis/acute metabolic encepalopathy and UTI. Suprapubic catheter intact draining zacarias urine. I & O monitor. Repositioned for comfort. Left side weakness noted. Pain meds given as needed. Will monitor patient. Fall precautions maintained. Siderails up for safety. All due meds given without difficulty. RUE midline intact, IVF's infusing well. Kept comfortable. BP 182/84 at beginning of shift, Hydralazine given PRN. Will recheck BP. No acute distress noted.
[2023-05-05 05:36] VITALS: BP 168/70
[2023-05-05] MEDS: PANTOPRAZOLE SODIUM 40 MG TABLET.DR PO SCH (06:12)
[2023-05-05 06:53] LABS: HEMATOCRIT 40.9 % (31.2-41.9); MEAN CORPUSCULAR HEMOGLOBIN 30.1 uug (24.7-32.8); MEAN CORPUSCULAR VOLUME 92.8 fL (75.5-95.3); PLATELET COUNT (AUTO) 213 K/uL (179-408)
[2023-05-05 07:16] LABS: BILIRUBIN,TOTAL 0.5 mg/dL (0.2-1.0); CREATININE 0.9 mg/dL (0.6-1.3); MAGNESIUM 1.9 mg/dL (1.8-2.4); PHOSPHOROUS 3.2 mg/dL (2.5-4.9); POTASSIUM 3.4 mmol/L (3.5-5.1)
[2023-05-05 08:00] VITALS: BP 164/77
[2023-05-05] MEDS: ASPIRIN EC 81 MG TABLET.DR PO SCH (08:29)
[2023-05-05] MEDS: MELOXICAM 7.5 MG TABLET PO SCH (08:29)
[2023-05-05] MEDS: busPIRone 10 MG TABLET PO SCH ×2 (08:30→16:50)
[2023-05-05] MEDS: buPROPion XL 150 MG TAB.SR.24H PO SCH (08:30)
[2023-05-05] MEDS: LAMOTRIGINE 100 MG TABLET PO SCH ×2 (08:30→20:41)
[2023-05-05] MEDS: LORAZEPAM 0.5 MG TABLET PO SCH ×2 (08:30→16:51)
[2023-05-05] MEDS: ENSURE ENLIVE (VAN) 240 ML LIQUID PO SCH ×2 (08:31→16:51)
[2023-05-05] MEDS: PREGABALIN 25 MG CAPSULE PO SCH ×2 (08:31→16:50)
[2023-05-05] MEDS: BACLOFEN 10 MG TABLET PO SCH ×3 (08:31→16:50)
[2023-05-05] MEDS: HYDROCORTISONE 1% OINT 28.35 GM TUBE TOP SCH ×3 (08:32→16:51)
[2023-05-05] MEDS: CLOTRIMAZOLE 1% CREAM 30 GM TUBE TOP SCH ×2 (08:32→16:51)
[2023-05-05] MEDS: REMEDY ESSENTIAL ZINC PASTE 113 GM TOP SCH ×2 (08:32→20:45)
[2023-05-05] MEDS: FLUCONAZOLE 200 MG TABLET PO SCH (08:54)
[2023-05-05] MEDS: AMLODIPINE 5 MG TABLET PO SCH (08:54)
[2023-05-05] MEDS ORDERED: POTASSIUM CHLORIDE 20 MEQ TAB.PRT.SR PO ONE (09:00)
[2023-05-05] MEDS: ENOXAPARIN SODIUM 40 MG/0.4 ML DISP.SYRIN SQ SCH (09:08)
[2023-05-05] MEDS: OXYCODONE/APAP 5-325 MG TABLET PO PRN (10:39)
[2023-05-05 15:58] VITALS: BP 164/77
[2023-05-05] MEDS ORDERED: RIZATRIPTAN 5 MG PO PRN (16:15)
--- NOTE | 2023-05-05 18:12 | NUR ---
no events noted during shift
[2023-05-05] MEDS: TRAZODONE 100 MG TABLET PO SCH (20:41)
[2023-05-05] MEDS: ATORVASTATIN 10 MG TABLET PO SCH (20:41)
[2023-05-05] MEDS: LITHIUM CARBONATE 300 MG CAPSULE PO SCH (20:42)
[2023-05-05 23:16] VITALS: BP 116/68
--- NOTE | 2023-05-06 04:30 | NUR ---
Condition unchanged. all needs attended. VSS. Admitted for acute matabolic encepalopathy. No distress noted. Will monitor patient. Suprapubic catheter intact draining zacarias urine. Kept comfortable. Denies any pain nor any discomfort.
[2023-05-06] MEDS: PANTOPRAZOLE SODIUM 40 MG TABLET.DR PO SCH (06:28)
[2023-05-06 08:20] VITALS: BP 140/72
[2023-05-06] MEDS: ASPIRIN EC 81 MG TABLET.DR PO SCH (09:33)
[2023-05-06] MEDS: LAMOTRIGINE 100 MG TABLET PO SCH ×2 (09:33→20:43)
[2023-05-06] MEDS: BACLOFEN 10 MG TABLET PO SCH ×3 (09:34→16:41)
[2023-05-06] MEDS: LORAZEPAM 0.5 MG TABLET PO SCH ×2 (09:35→16:42)
[2023-05-06] MEDS: buPROPion XL 150 MG TAB.SR.24H PO SCH (09:35)
[2023-05-06] MEDS: PREGABALIN 25 MG CAPSULE PO SCH ×2 (09:35→16:41)
[2023-05-06] MEDS: busPIRone 10 MG TABLET PO SCH ×2 (09:35→16:41)
[2023-05-06] MEDS: MELOXICAM 7.5 MG TABLET PO SCH (09:35)
[2023-05-06] MEDS: ENOXAPARIN SODIUM 40 MG/0.4 ML DISP.SYRIN SQ SCH (09:37)
[2023-05-06] MEDS: OXYCODONE/APAP 5-325 MG TABLET PO PRN ×2 (09:39→18:30)
[2023-05-06] MEDS: AMLODIPINE 5 MG TABLET PO SCH (09:45)
[2023-05-06] MEDS: REMEDY ESSENTIAL ZINC PASTE 113 GM TOP SCH ×2 (09:46→20:44)
[2023-05-06] MEDS: HYDROCORTISONE 1% OINT 28.35 GM TUBE TOP SCH ×3 (09:48→16:50)
[2023-05-06] MEDS: ENSURE ENLIVE (VAN) 240 ML LIQUID PO SCH ×2 (09:48→16:41)
[2023-05-06] MEDS: CLOTRIMAZOLE 1% CREAM 30 GM TUBE TOP SCH ×2 (09:48→16:51)
[2023-05-06] MEDS: FLUCONAZOLE 200 MG TABLET PO SCH (10:33)
[2023-05-06 15:32] VITALS: BP 151/47
--- NOTE | 2023-05-06 19:24 | NUR ---
RECEIVED REPORT FROM [facility] SHIFT RN. PATIENT IS ALERT AND ORIENTED X2-3 AND SPEAKS VIET[place]ESE. VITAL SIGNS STABLE. PATIENT TOLERATES PO MEDICATIONS AND DIET WELL. PATIENT HAD COMPLAINT OF PAIN. RN GAVE MEDICATIONS ORDERED. PATIENT EXPRESSES RELIEF. PATIENT PARTICIPATES WITH PHYSICAL AND OCCUPATIONAL THERAPY SCHEDULED. PATIENT SUPRAPUBIC CATHETER DRAINING AND PATENT. NO ACUTE DISTRESS NOTED. CALL LIGHT WITHIN REACH. FALL PRECAUTIONS OBSERVED. RN ENDORSED CARE TO [facility] SHIFT NURSE FOR CONTINUATION OF CARE.
--- NOTE | 2023-05-06 19:30 | NUR ---
Received patient in bed alert able to make needs known, no complain of pain at this time, patient sister at bedside, rendered total care, kept clean and dry, cont to monitor.
--- NOTE | 2023-05-06 19:34 | NUR ---
Patient pulled out midline, patient does not even remember what happen.
[2023-05-06 20:18] VITALS: BP 120/67
[2023-05-06] MEDS: TRAZODONE 100 MG TABLET PO SCH (20:43)
[2023-05-06] MEDS: ATORVASTATIN 10 MG TABLET PO SCH (20:44)
[2023-05-06] MEDS: LITHIUM CARBONATE 300 MG CAPSULE PO SCH (20:44)
[2023-05-07 04:50] VITALS: BP 125/78
--- NOTE | 2023-05-07 05:06 | NUR ---
Patient asleep but arousable, cont on pain management due pain on left side of the body, assist with turning and repositioning, call light within reach. cont to monitor.
[2023-05-07] MEDS: PANTOPRAZOLE SODIUM 40 MG TABLET.DR PO SCH (06:15)
[2023-05-07 07:45] VITALS: BP 138/63
[2023-05-07] MEDS: MELOXICAM 7.5 MG TABLET PO SCH (08:08)
[2023-05-07] MEDS: LAMOTRIGINE 100 MG TABLET PO SCH ×2 (08:08→20:14)
[2023-05-07] MEDS: OXYCODONE/APAP 5-325 MG TABLET PO PRN ×3 (08:08→20:15)
[2023-05-07] MEDS: PREGABALIN 25 MG CAPSULE PO SCH ×2 (08:08→17:15)
[2023-05-07] MEDS: BACLOFEN 10 MG TABLET PO SCH ×3 (08:09→17:15)
[2023-05-07] MEDS: busPIRone 10 MG TABLET PO SCH ×2 (08:09→17:15)
[2023-05-07] MEDS: buPROPion XL 150 MG TAB.SR.24H PO SCH (08:09)
[2023-05-07] MEDS: AMLODIPINE 5 MG TABLET PO SCH (08:09)
[2023-05-07] MEDS: ASPIRIN EC 81 MG TABLET.DR PO SCH (08:09)
[2023-05-07] MEDS: LORAZEPAM 0.5 MG TABLET PO SCH ×2 (08:09→17:15)
[2023-05-07] MEDS: CLOTRIMAZOLE 1% CREAM 30 GM TUBE TOP SCH ×2 (08:18→17:58)
[2023-05-07] MEDS: HYDROCORTISONE 1% OINT 28.35 GM TUBE TOP SCH ×3 (08:18→17:57)
[2023-05-07] MEDS: ENSURE ENLIVE (VAN) 240 ML LIQUID PO SCH ×2 (08:18→17:15)
[2023-05-07] MEDS: REMEDY ESSENTIAL ZINC PASTE 113 GM TOP SCH ×2 (08:19→20:16)
[2023-05-07] MEDS: ENOXAPARIN SODIUM 40 MG/0.4 ML DISP.SYRIN SQ SCH (08:24)
[2023-05-07 16:35] VITALS: BP 131/69
[2023-05-07 18:59] VITALS: BP 126/66
[2023-05-07] MEDS: ATORVASTATIN 10 MG TABLET PO SCH (20:14)
[2023-05-07] MEDS: LITHIUM CARBONATE 300 MG CAPSULE PO SCH (20:14)
[2023-05-07] MEDS: TRAZODONE 100 MG TABLET PO SCH (20:14)
--- NOTE | 2023-05-07 20:24 | NUR ---
patient refused her IV fluids whole day. no distress noted. tolerating po fluids and food well. Addendum: 05/08/23 at 0559 by CHARLES NUNES RN, RN no other events noted
[2023-05-08 04:39] VITALS: BP 110/53
[2023-05-08] MEDS: OXYCODONE/APAP 5-325 MG TABLET PO PRN ×2 (05:41→12:59)
[2023-05-08] MEDS: PANTOPRAZOLE SODIUM 40 MG TABLET.DR PO SCH (05:41)
--- NOTE | 2023-05-08 07:00 | NUR ---
pt received in bed sleeping ,on o2 2 litter nc ,vs are stable call light with in reach ,we will continue to monitors
[2023-05-08 08:00] VITALS: BP 105/49
[2023-05-08] MEDS: ENSURE ENLIVE (VAN) 240 ML LIQUID PO SCH ×2 (08:00→16:37)
[2023-05-08] MEDS: AMLODIPINE 5 MG TABLET PO SCH (08:15)
[2023-05-08] MEDS: PREGABALIN 25 MG CAPSULE PO SCH ×2 (08:15→16:27)
[2023-05-08] MEDS: buPROPion XL 150 MG TAB.SR.24H PO SCH (08:15)
[2023-05-08] MEDS: LORAZEPAM 0.5 MG TABLET PO SCH ×3 (08:15→20:45)
[2023-05-08] MEDS: ASPIRIN EC 81 MG TABLET.DR PO SCH (08:16)
[2023-05-08] MEDS: MELOXICAM 7.5 MG TABLET PO SCH (08:16)
[2023-05-08] MEDS: BACLOFEN 10 MG TABLET PO SCH ×3 (08:16→16:27)
[2023-05-08] MEDS: LAMOTRIGINE 100 MG TABLET PO SCH ×2 (08:16→20:00)
[2023-05-08] MEDS: ENOXAPARIN SODIUM 40 MG/0.4 ML DISP.SYRIN SQ SCH (08:47)
[2023-05-08] MEDS: REMEDY ESSENTIAL ZINC PASTE 113 GM TOP SCH ×2 (09:19→21:18)
[2023-05-08] MEDS: busPIRone 10 MG TABLET PO SCH ×2 (09:19→16:27)
[2023-05-08] MEDS: HYDROCORTISONE 1% OINT 28.35 GM TUBE TOP SCH ×3 (09:20→16:37)
[2023-05-08] MEDS: CLOTRIMAZOLE 1% CREAM 30 GM TUBE TOP SCH ×2 (09:20→16:38)
--- NOTE | 2023-05-08 13:00 | NUR ---
pt is awake eating her lunch sister is at bed side
[2023-05-08 16:13] VITALS: BP 110/48
[2023-05-08 20:00] VITALS: BP 135/59
[2023-05-08] MEDS: ATORVASTATIN 10 MG TABLET PO SCH (20:00)
[2023-05-08] MEDS: LITHIUM CARBONATE 300 MG CAPSULE PO SCH (20:00)
[2023-05-08] MEDS: TRAZODONE 100 MG TABLET PO SCH (20:00)
--- NOTE | 2023-05-08 23:34 | NUR ---
Sleeping, appears comfortable
[2023-05-09] MEDS: PANTOPRAZOLE SODIUM 40 MG TABLET.DR PO SCH (06:01)
[2023-05-09 07:45] VITALS: BP 123/59
--- NOTE | 2023-05-09 08:18 | NUR ---
Patient awake , alert in bed, appears comfortable and denies pain.
[2023-05-09] MEDS: ENSURE ENLIVE (VAN) 240 ML LIQUID PO SCH ×2 (08:54→17:51)
[2023-05-09] MEDS: buPROPion XL 150 MG TAB.SR.24H PO SCH (09:27)
[2023-05-09] MEDS: PREGABALIN 25 MG CAPSULE PO SCH ×2 (09:27→17:50)
[2023-05-09] MEDS: LAMOTRIGINE 100 MG TABLET PO SCH ×2 (09:28→20:30)
[2023-05-09] MEDS: ASPIRIN EC 81 MG TABLET.DR PO SCH (09:28)
[2023-05-09] MEDS: busPIRone 10 MG TABLET PO SCH ×2 (09:28→17:50)
[2023-05-09] MEDS: MELOXICAM 7.5 MG TABLET PO SCH (09:29)
[2023-05-09] MEDS: BACLOFEN 10 MG TABLET PO SCH ×3 (09:29→18:08)
[2023-05-09] MEDS: LORAZEPAM 0.5 MG TABLET PO SCH ×2 (09:30→17:50)
[2023-05-09] MEDS: ENOXAPARIN SODIUM 40 MG/0.4 ML DISP.SYRIN SQ SCH (09:31)
[2023-05-09] MEDS: AMLODIPINE 5 MG TABLET PO SCH (09:39)
[2023-05-09] MEDS: HYDROCORTISONE 1% OINT 28.35 GM TUBE TOP SCH ×3 (09:39→17:53)
[2023-05-09] MEDS: CLOTRIMAZOLE 1% CREAM 30 GM TUBE TOP SCH ×2 (09:40→17:53)
[2023-05-09] MEDS: REMEDY ESSENTIAL ZINC PASTE 113 GM TOP SCH ×2 (09:52→20:30)
[2023-05-09] MEDS: OXYCODONE/APAP 5-325 MG TABLET PO PRN ×2 (13:25→19:06)
[2023-05-09] MEDS ORDERED: MAG HYDROX/AL HYDROX/SIMETH 30 ML LIQUID UDC PO PRN (13:45)
[2023-05-09 15:45] VITALS: BP 138/73
[2023-05-09] MEDS ORDERED: ZALEPLON 10 MG PO PRN (16:00)
[2023-05-09] MEDS: ATORVASTATIN 10 MG TABLET PO SCH (20:30)
[2023-05-09] MEDS: LITHIUM CARBONATE 300 MG CAPSULE PO SCH (20:30)
[2023-05-09] MEDS: TRAZODONE 100 MG TABLET PO SCH (20:30)
[2023-05-09] MEDS: ZALEPLON 10 MG PO SCH (20:46)
[2023-05-09] MEDS ORDERED: MISCELLANEOUS MED PO SCH (21:00)
[2023-05-09 21:08] VITALS: BP 128/56
[2023-05-10] MEDS: PANTOPRAZOLE SODIUM 40 MG TABLET.DR PO SCH (06:18)
[2023-05-10 08:05] VITALS: BP 116/57
[2023-05-10] MEDS: ENSURE ENLIVE (VAN) 240 ML LIQUID PO SCH ×2 (08:12→16:44)
[2023-05-10] MEDS: ASPIRIN EC 81 MG TABLET.DR PO SCH (09:05)
[2023-05-10] MEDS: busPIRone 10 MG TABLET PO SCH ×2 (09:05→16:42)
[2023-05-10] MEDS: hydrALAZINE HCL 25 MG TABLET PO PRN (09:05)
[2023-05-10] MEDS: AMLODIPINE 5 MG TABLET PO SCH (09:05)
[2023-05-10] MEDS: BACLOFEN 10 MG TABLET PO SCH ×3 (09:05→16:42)
[2023-05-10] MEDS: LORAZEPAM 0.5 MG TABLET PO SCH ×2 (09:06→16:42)
[2023-05-10] MEDS: buPROPion XL 150 MG TAB.SR.24H PO SCH (09:06)
[2023-05-10] MEDS: LAMOTRIGINE 100 MG TABLET PO SCH ×2 (09:06→21:07)
[2023-05-10] MEDS: MELOXICAM 7.5 MG TABLET PO SCH (09:06)
[2023-05-10] MEDS: CLOTRIMAZOLE 1% CREAM 30 GM TUBE TOP SCH ×2 (09:20→16:43)
[2023-05-10] MEDS: HYDROCORTISONE 1% OINT 28.35 GM TUBE TOP SCH ×3 (09:20→16:43)
[2023-05-10] MEDS: PREGABALIN 25 MG CAPSULE PO SCH ×2 (09:20→16:42)
[2023-05-10] MEDS: REMEDY ESSENTIAL ZINC PASTE 113 GM TOP SCH ×2 (09:21→21:08)
[2023-05-10] MEDS: ENOXAPARIN SODIUM 40 MG/0.4 ML DISP.SYRIN SQ SCH (09:23)
[2023-05-10] MEDS: OXYCODONE/APAP 5-325 MG TABLET PO PRN ×2 (12:16→21:08)
[2023-05-10 15:44] VITALS: BP 123/54
--- NOTE | 2023-05-10 19:41 | NUR ---
PATIENT A/OX2 WITH ON AND OFF PERIODS OF CONFUSION/FORGETFUL, REDIRECT NEEDED WITH HELP. PATIENT IS ABLE TO VERBALIZE SIMPLE NEEDS, MEDICATED PRN FOR PAIN BASED ON PAIN LEVEL NEEDS/ ORDERED BY MD. NO RESPIRATORY DISTRESS NOTED; NO S/S OF HYPO/HTN. ASSIST WITH ADLS DURING SHIFT, INCONTINENT OF BM, CARE PROVIDED AT ROUTINE INTERVALS AND PRN. SCHEDULED MEDICATION ADMINISTERED ORDERED W/ NO ASE NOTED. ORAL FLUIDS OFFERED THROUGH OUT THE SHIFT AND TAKEN WELL. NO SWALLOWING PROBLEMS OBSERVED. CONTINUES UNDER REHAB FOR PT/OT SKILLED SERVICES ORDERED NGUYEN. FAIRLY. NO UNUSUAL EVENTS, S/P DRAINING TO YELLOW CLEAR URINE OUTPUT. ALL NEEDS ATTENDED WELL AND MET, PLANS TO DC TOMORROW TO A SNF, COVID-19 TEST DONE. ENDORSED TO RELIEVING LICENSED.
[2023-05-10 20:00] VITALS: BP 109/65
[2023-05-10] MEDS: ZALEPLON 10 MG PO SCH (21:00)
[2023-05-10] MEDS: LITHIUM CARBONATE 300 MG CAPSULE PO SCH (21:07)
[2023-05-10] MEDS: ATORVASTATIN 10 MG TABLET PO SCH (21:07)
[2023-05-10] MEDS: TRAZODONE 100 MG TABLET PO SCH (21:07)
[2023-05-11 04:00] VITALS: BP 141/75
--- NOTE | 2023-05-11 05:02 | NUR ---
Quiet night. AAOx2-3 with periods of confusion at times. All needs attended. VSS. Kept comfortable. Will monitor. Incontinent of bowel and bladder. Kept clean and dry. No acute distress noted.
[2023-05-11] MEDS: PANTOPRAZOLE SODIUM 40 MG TABLET.DR PO SCH (06:07)
--- NOTE | 2023-05-11 07:40 | NUR ---
Patient asleep, no family members at bedside.
[2023-05-11 08:00] VITALS: BP 102/60
[2023-05-11] MEDS: ENSURE ENLIVE (VAN) 240 ML LIQUID PO SCH (09:44)
[2023-05-11] MEDS: buPROPion XL 150 MG TAB.SR.24H PO SCH (09:45)
[2023-05-11] MEDS: ASPIRIN EC 81 MG TABLET.DR PO SCH (09:45)
[2023-05-11] MEDS: MELOXICAM 7.5 MG TABLET PO SCH (09:45)
[2023-05-11] MEDS: LAMOTRIGINE 100 MG TABLET PO SCH (09:45)
[2023-05-11] MEDS: BACLOFEN 10 MG TABLET PO SCH ×2 (09:45→13:50)
[2023-05-11] MEDS: busPIRone 10 MG TABLET PO SCH (09:46)
[2023-05-11 09:47] VITALS: BP 102/60
[2023-05-11] MEDS: AMLODIPINE 5 MG TABLET PO SCH (09:47)
[2023-05-11] MEDS: ENOXAPARIN SODIUM 40 MG/0.4 ML DISP.SYRIN SQ SCH (09:52)
[2023-05-11] MEDS: HYDROCORTISONE 1% OINT 28.35 GM TUBE TOP SCH ×2 (09:54→13:51)
[2023-05-11] MEDS: CLOTRIMAZOLE 1% CREAM 30 GM TUBE TOP SCH (09:54)
--- NOTE | 2023-05-11 10:30 | NUR ---
Patient's sister at bedside, patient very sleepy and just woke up t have breakfast, all meds due given. Family aware of dc plans today.
[2023-05-11] MEDS: PREGABALIN 25 MG CAPSULE PO SCH (10:33)
[2023-05-11] MEDS: OXYCODONE/APAP 5-325 MG TABLET PO PRN ×2 (10:33→14:40)
[2023-05-11] MEDS: LORAZEPAM 0.5 MG TABLET PO SCH (10:33)
[2023-05-11] MEDS: REMEDY ESSENTIAL ZINC PASTE 113 GM TOP SCH (12:08)
--- NOTE | 2023-05-11 14:15 | NUR ---
Patient discharging to [facility] today. Report given to Swati Thomas
--- NOTE | 2023-05-11 15:29 | NUR ---
EMT personnels in unit, handoff given. Patient going to [facility]. at bedside, all belongings accounted for.
--- NOTE | 2023-05-11 15:40 | NUR ---
Patient discharged via ambulance.
== END 2023-05-11 15:40 | DRG 871 ==
PROVIDERS: ADMIT Physical Medicine & Rehabilitation Pain Medicine; ATTEND Physical Medicine & Rehabilitation Pain Medicine
PROC: 05HB33Z Insertion of Infusion Device into Right Basilic Vein, Percutaneous Approach (ICD-10-PCS; principal; 2023-04-27)
DX: A41.9 Sepsis, unspecified organism (principal); G92.8 Other toxic encephalopathy; J96.90 Respiratory failure, unspecified, unspecified whether with hypoxia or hypercapnia; N39.0 Urinary tract infection, site not specified; D68.59 Other primary thrombophilia; E44.1 Mild protein-calorie malnutrition; I69.354 Hemiplegia and hemiparesis following cerebral infarction affecting left non-dominant side; F01.54 Vascular dementia, unspecified severity, with anxiety; F01.53 Vascular dementia, unspecified severity, with mood disturbance; B37.0 Candidal stomatitis; F13.20 Sedative, hypnotic or anxiolytic dependence, uncomplicated; G91.2 (Idiopathic) normal pressure hydrocephalus; B48.8 Other specified mycoses; E66.01 Morbid (severe) obesity due to excess calories; I10 Essential (primary) hypertension; E88.09 Other disorders of plasma-protein metabolism, not elsewhere classified; Z87.440 Personal history of urinary (tract) infections; E78.5 Hyperlipidemia, unspecified; E87.6 Hypokalemia; F31.9 Bipolar disorder, unspecified; F41.9 Anxiety disorder, unspecified; G43.909 Migraine, unspecified, not intractable, without status migrainosus; G93.89 Other specified disorders of brain; I69.391 Dysphagia following cerebral infarction; K80.20 Calculus of gallbladder without cholecystitis without obstruction; N20.0 Calculus of kidney; N26.1 Atrophy of kidney (terminal); N31.9 Neuromuscular dysfunction of bladder, unspecified; Z68.32 Body mass index [BMI] 32.0-32.9, adult; Z74.01 Bed confinement status; Z79.899 Other long term (current) drug therapy; Z87.891 Personal history of nicotine dependence; Z88.1 Allergy status to other antibiotic agents; Z88.8 Allergy status to other drugs, medicaments and biological substances; B96.89 Other specified bacterial agents as the cause of diseases classified elsewhere
CPT/HCPCS: 36415; 36600; 70450; 71045; 76770; 82803; 83550; 83690; 83735; 84100; 84443; 85025; 87040; 87806; 93005; 97535-GO-CO; A4663; A6213; J1450; J1650; J2185; J3480; J7040